=== PATIENT | female | born 1990 | race African-American/Black ===

== ENCOUNTER 2017-04-28 12:59 | Observation (INO) ==
[2017-04-28] MEDS: LACTATED RINGERS 1,000 ML IV SCH ×2 (13:10→19:45)
[2017-04-28 13:44] LABS: Basophils % 0.1 % (0.0-0.8); Eosinophils # 0.1 10*3/uL (0.0-0.87); Hematocrit 34.5 VOL% (35.7-47.0); Immature Granulocytes % 0.6 %; Immature Granulocytes Absolute 0.04 #; Lymphocytes % 27.9 % (21.3-54.2); Mean Corpuscular HGB Conc 31.9 GM/DL (32-36); Mean Corpuscular Hemoglobin 26 PG (27-34); Mean Corpuscular Volume 81.6 FL (87-102); Mean Platelet Volume 11.9 FL (9.6-12.0); Monocytes # 0.5 10*3/uL (0.11-0.8); Monocytes % 7.4 % (1.7-12.7); Neutrophils # 4.5 10*3/uL (1.4-7.4); Platelet Count 181 T/CUMM (130-400); Red Blood Count 4.23 MC/CUMM (3.8-5.5); Red Cell Distribution Width 16.4 % (9.3-17.3); White Blood Count 7.1 T/CUMM (4-12)
[2017-04-28 13:49] LABS: Apearance,Urine Slightly Hazy (Clear); Bacteria,Urine Occasional /HPF (Few); Bilirubin,Urine Negative (Negative); Blood, Urine Small mg/dL (Negative); Glucose,Urine (UA) Negative (Negative); Ketones,Urine Negative (Negative); Mucus,Urine Occasional /LPF (Occasional); Nitrite,Urine Negative (Negative); Protein,Urine 100 MG/DL; RBC,Urine 6 /HPF (0-4); Squamous Epithelial Cell,Urine Occasional /HPF (0-10); Urine Color Yellow (Yellow); Urine Specific Gravity 1.023 (1.001-1.035); WBC,Urine 3 /HPF (0-6)
[2017-04-28 14:04] LABS: Alanine Aminotransferase 13 U/L (13-56); Albumin 2.4 G/DL (3.4-5.0); Alkaline Phosphatase 131 U/L (45-117); Aspartate Amino Transferase 17 U/L (0-37); Bilirubin,Total < 0.39 MG/DL (0.2-1.0); Blood Urea Nitrogen 5 MG/DL (7-18); Calcium 8.9 MG/DL (8.5-10.1); Glucose 101 MG/DL (74-106); Osmolality,Calculated 273.5 MOS/KG (273-304); Potassium 3.7 MMOL/L (3.5-5.1); Sodium 139 MMOL/L (136-145); Total Protein 6.7 G/DL (6.4-8.3)
[2017-04-28] MEDS: ONDANSETRON 4 MG/2 ML VIAL IV PRN ×2 (14:59→21:53)
[2017-04-28] MEDS: MORPHINE 2 MG/1 ML SYRINGE IV SCH ×2 (15:01→21:53)
[2017-04-29] MEDS: LACTATED RINGERS 1,000 ML IV SCH (04:09)
[2017-04-29] MEDS: ONDANSETRON 4 MG/2 ML VIAL IV PRN (04:56)
[2017-04-29] MEDS: MORPHINE 2 MG/1 ML SYRINGE IV SCH ×2 (04:57→14:25)
[2017-04-29 07:22] VITALS: BP 146/80
== END 2017-04-29 13:00 | disposition home or self-care (01) ==
LOC: N.OB → N.LD 12:59 → N.OB 19:50
PROVIDERS: ADMIT Obstetrics & Gynecology; ATTEND Obstetrics & Gynecology

== ENCOUNTER 2017-05-02 16:08 | Inpatient (IN) ==
[~2017-05-02 16:08] MED LIST: ONDANSETRON 4 MG/2 ML VIAL ONE; ceFAZolin 1,000 MG in SYRINGE 1 EACH IV SCH
[2017-05-02 17:46] LABS: Apearance,Urine CLEAR (Clear); Bilirubin,Urine Negative (Negative); Blood, Urine Small mg/dL (Negative); Glucose,Urine (UA) Negative (Negative); Ketones,Urine Negative (Negative); Mucus,Urine Occasional /LPF (Occasional); Nitrite,Urine Negative (Negative); Protein,Urine 100 MG/DL; RBC,Urine 2 /HPF (0-4); Squamous Epithelial Cell,Urine Occasional /HPF (0-10); Urine Color Yellow (Yellow); Urine Specific Gravity 1.004 (1.001-1.035); Urine Urobilinogen < 2.0 EU/DL (0.2-1.0); WBC,Urine 1 /HPF (0-6)
[2017-05-02] MEDS ORDERED: LACTATED RINGERS 500 ML IV PRN (17:47)
[2017-05-02] MEDS ORDERED: ONDANSETRON 4 MG/2 ML VIAL IV PRN ×2 (17:47→21:15)
[2017-05-02 17:48] LABS: Basophils % 0.3 % (0.0-0.8); Eosinophils # 0.2 10*3/uL (0.0-0.87); Eosinophils % 3.3 % (0.00-10.9); Hematocrit 32.2 VOL% (35.7-47.0); Hemoglobin 10.1 GM/DL (12.0-16.0); Immature Granulocytes % 0.7 %; Immature Granulocytes Absolute 0.05 #; Lymphocytes # 2.2 10*3/uL (1.4-4.0); Lymphocytes % 31.9 % (21.3-54.2); Mean Corpuscular HGB Conc 31.4 GM/DL (32-36); Mean Corpuscular Hemoglobin 26 PG (27-34); Mean Corpuscular Volume 81.9 FL (87-102); Mean Platelet Volume 11.1 FL (9.6-12.0); Monocytes # 0.4 10*3/uL (0.11-0.8); Monocytes % 5.4 % (1.7-12.7); NRBC # 0.02 10*3/uL; Neutrophils # 4.1 10*3/uL (1.4-7.4); Neutrophils % 58.4 % (38.7-73.9); Platelet Count 164 T/CUMM (130-400); Red Blood Count 3.93 MC/CUMM (3.8-5.5); Red Cell Distribution Width 16.1 % (9.3-17.3)
[2017-05-02] MEDS ORDERED: MAGNESIUM SULF RIDER 100 ML IV ONE (17:52)
[2017-05-02 17:57] LABS: INR 0.9; PT Patient Result 9.4 SECS; Partial Thromboplastin Time 26.2 SECS (0-40)
[2017-05-02] MEDS ORDERED: MAGNESIUM SULF DRIP 40 GM/1,000 ML ML IV SCH ×2 (18:00→21:30)
[2017-05-02] MEDS: LACTATED RINGERS 1,000 ML IV SCH (18:08)
[2017-05-02 18:15] LABS: Alanine Aminotransferase 11 U/L (13-56); Albumin 2.1 G/DL (3.4-5.0); Alkaline Phosphatase 133 U/L (45-117); Aspartate Amino Transferase 14 U/L (0-37); Bilirubin,Direct < 0.100 MG/DL (0.0-0.20); Bilirubin,Total < 0.39 MG/DL (0.2-1.0); Blood Urea Nitrogen 5 MG/DL (7-18); Calcium 7.9 MG/DL (8.5-10.1); Glucose 76 MG/DL (74-106); Osmolality,Calculated 278.1 MOS/KG (273-304); Potassium 3.3 MMOL/L (3.5-5.1); Sodium 142 MMOL/L (136-145); Total Protein 5.7 G/DL (6.4-8.3); Uric Acid 7.8 MG/DL (2.6-6.0)
[2017-05-02] MEDS ORDERED: BETAMETH SODIUM PHOS/ACETATE 30 MG/5 ML VIAL IM SCH (18:30)
[2017-05-02 18:52] LABS: Apearance,Urine CLEAR (Clear); Bacteria,Urine Occasional /HPF (Few); Bilirubin,Urine Negative (Negative); Blood, Urine Small mg/dL (Negative); Glucose,Urine (UA) Negative (Negative); Ketones,Urine Negative (Negative); Mucus,Urine Occasional /LPF (Occasional); Nitrite,Urine Negative (Negative); Protein,Urine 100 MG/DL; RBC,Urine <1 /HPF (0-4); Urine Color Yellow (Yellow); Urine Specific Gravity 1.005 (1.001-1.035); Urine Urobilinogen < 2.0 EU/DL (0.2-1.0); WBC,Urine <1 /HPF (0-6)
[2017-05-02] MEDS ORDERED: FAMOTIDINE 20 MG/2 ML VIAL IV ONE (18:58)
[2017-05-02] MEDS ORDERED: CITRIC ACID/SODIUM CITRATE 30 ML UDCUP PO ONE (18:58)
[2017-05-02] MEDS ORDERED: OXYTOCIN/LR 20 UNIT/1,000 ML BAG IV ONE ×2 (18:59→21:15)
[2017-05-02] MEDS ORDERED: ceFAZolin 2,000 MG in PREMIX 1 EACH IV ONE (19:00)
[2017-05-02] MEDS ORDERED: fentaNYL 100 MCG/2 ML VIAL ONE (21:05)
[2017-05-02] MEDS ORDERED: MORPHINE 10 MG/10 ML VIAL ONE (21:05)
[2017-05-02] MEDS ORDERED: MAGNESIUM HYDROXIDE SUSP 30 ML UDCUP PO PRN (21:15)
[2017-05-02] MEDS ORDERED: ACETAMINOPHEN 325 MG TABLET PO PRN (21:15)
[2017-05-02] MEDS ORDERED: SIMETHICONE CHEW 80 MG TABLET PO PRN (21:15)
[2017-05-02] MEDS ORDERED: RHO(D) IMMUNE GLOBULIN 300 MCG SYRINGE IM ONE (21:15)
[2017-05-02] MEDS ORDERED: LACTATED RINGERS 1,000 ML IV SCH (21:30)
[2017-05-02] MEDS ORDERED: LEVALBUTEROL 1.25 MG/3 ML NEB RESP TX ONE (21:33)
[2017-05-02] MEDS: LABETALOL 200 MG TABLET PO SCH (23:25)
[2017-05-03] MEDS: LACTATED RINGERS 1,000 ML IV SCH (03:10)
[2017-05-03 04:19] LABS: Basophils % 0.1 % (0.0-0.8); Eosinophils # 0.2 10*3/uL (0.0-0.87); Eosinophils % 1.7 % (0.00-10.9); Hematocrit 30.1 VOL% (35.7-47.0); Hemoglobin 9.5 GM/DL (12.0-16.0); Immature Granulocytes % 0.6 %; Immature Granulocytes Absolute 0.05 #; Lymphocytes # 1.9 10*3/uL (1.4-4.0); Lymphocytes % 21.7 % (21.3-54.2); Mean Corpuscular HGB Conc 31.6 GM/DL (32-36); Mean Corpuscular Hemoglobin 26 PG (27-34); Mean Corpuscular Volume 82.2 FL (87-102); Mean Platelet Volume 11.2 FL (9.6-12.0); Monocytes # 0.4 10*3/uL (0.11-0.8); Monocytes % 4.8 % (1.7-12.7); Neutrophils # 6.2 10*3/uL (1.4-7.4); Neutrophils % 71.1 % (38.7-73.9); Platelet Count 131 T/CUMM (130-400); Red Blood Count 3.66 MC/CUMM (3.8-5.5); Red Cell Distribution Width 16.3 % (9.3-17.3); White Blood Count 8.7 T/CUMM (4-12)
[2017-05-03] MEDS: ceFAZolin 1,000 MG in SYRINGE 1 EACH IV SCH ×2 (04:59→13:55)
[2017-05-03 05:13] LABS: Albumin 1.9 G/DL (3.4-5.0); Bilirubin,Total 0.4 MG/DL (0.2-1.0); Calcium 7.6 MG/DL (8.5-10.1); Osmolality,Calculated 274.4 MOS/KG (273-304); Potassium 3.1 MMOL/L (3.5-5.1)
[2017-05-03] MEDS: POTASSIUM CHLORIDE 20 MEQ TABLET PO SCH ×2 (09:00→21:55)
[2017-05-03] MEDS: DOCUSATE SODIUM 100 MG CAPSULE PO SCH ×2 (09:00→21:55)
[2017-05-03] MEDS: LABETALOL 200 MG TABLET PO SCH ×2 (09:00→21:55)
[2017-05-03] MEDS: MULTIVITAMIN (PRENATAL) TABLET PO SCH (09:00)
[2017-05-03] MEDS: IBUPROFEN 800 MG TABLET PO PRN (09:50)
[2017-05-04] MEDS: IBUPROFEN 800 MG TABLET PO PRN (07:35)
[2017-05-04 09:11] VITALS: BP 151/87
[2017-05-04] MEDS: LABETALOL 200 MG TABLET PO SCH (10:16)
[2017-05-04] MEDS: MULTIVITAMIN (PRENATAL) TABLET PO SCH (10:16)
[2017-05-04] MEDS: POTASSIUM CHLORIDE 20 MEQ TABLET PO SCH (10:17)
[2017-05-04] MEDS: DOCUSATE SODIUM 100 MG CAPSULE PO SCH (10:17)
[2017-05-04] MEDS ORDERED: INFLUENZA VIRUS VACCINE 0.5 ML SYRINGE IM ONE (10:30)
[2017-05-04] MEDS ORDERED: DIPH/TET/ACEL PERT BOOSTER VACCINE 0.5 ML VIAL IM ONE (10:30)
== END 2017-05-04 16:10 | disposition home or self-care (01) | DRG 766 ==
LOC: N.LDOUT 16:08 → N.LD 16:21 → N.OB 05-03 12:00
PROVIDERS: ADMIT Obstetrics & Gynecology; ATTEND Obstetrics & Gynecology
PROC: LDCSECT (ICD-10-PCS; 2017-05-02 20:00)